=== PATIENT | male | born 1985 | race Caucasian/White ===

== ENCOUNTER 2018-12-08 15:17 | Emergency (ER) | payer MEDICAID ==
[~2018-12-08] VITALS: Ht 170.2 cm; Wt 82.7 kg
[2018-12-08] MEDS ORDERED: LORazepam 1 MG TABLET PO ONE (16:00)
[2018-12-08 17:03] VITALS: BP 111/70
== END 2018-12-08 17:31 | disposition home or self-care (01) ==
LOC: EMS 15:20
DX: F11.10 Opioid abuse, uncomplicated (principal); F31.9 Bipolar disorder, unspecified; F17.210 Nicotine dependence, cigarettes, uncomplicated; F15.90 Other stimulant use, unspecified, uncomplicated
CPT/HCPCS: 99406

== ENCOUNTER 2018-12-15 06:20 | Emergency (ER) | payer MEDICAID ==
[~2018-12-15] VITALS: Ht 170.2 cm; Wt 86.4 kg
[2018-12-15 07:15] VITALS: BP 116/74
[2018-12-15] MEDS ORDERED: AMOX TR/POT CLAV 875 MG/125 MG TABLET PO ONE (07:30)
[2018-12-15] MEDS ORDERED: IBUPROFEN 600 MG TABLET PO ONE (07:30)
== END 2018-12-15 08:00 | disposition home or self-care (01) ==
LOC: EMS 06:20
DX: K04.7 Periapical abscess without sinus (principal); F31.9 Bipolar disorder, unspecified; F17.210 Nicotine dependence, cigarettes, uncomplicated; F11.90 Opioid use, unspecified, uncomplicated; F15.90 Other stimulant use, unspecified, uncomplicated
CPT/HCPCS: 99406